=== PATIENT | male | born 1935 | race Caucasian/White ===

== ENCOUNTER 2018-08-17 10:02 | Emergency (ER) | payer OTHER | END 2018-08-17 13:05 | disposition home or self-care (01) | LOC: JER 10:02 ==

== ENCOUNTER 2021-05-27 04:26 | Day surgery (SDC) | payer OTHER ==
[2021-05-24 15:44] VITALS: BMI 24.5
[2021-05-27 09:17] VITALS: TEMP 97
[2021-05-27 10:31] VITALS: BP 129/66; PULSE 86
== END 2021-05-27 10:04 | disposition home or self-care (01) ==
LOC: JASU-ENDO 04:26
PROVIDERS: ATTEND Internal Medicine Gastroenterology
PROC: 0DB68ZX Excision of Stomach, Via Natural or Artificial Opening Endoscopic, Diagnostic (ICD-10-PCS; principal; 2021-05-27 08:45)
DX: K29.50 Unspecified chronic gastritis without bleeding (principal); B96.81 Helicobacter pylori [H. pylori] as the cause of diseases classified elsewhere
CPT/HCPCS: 88305-TC; 88342-TC

== ENCOUNTER 2021-06-05 11:26 | Inpatient (IN) | payer OTHER ==
[2021-06-05] MEDS ORDERED: ALBUTEROL SO4 2.5/IPRATROPIUM 0.5 INH SOL 3 ML VIAL.NEB. NEB ONE (11:41)
[2021-06-05] MEDS ORDERED: DEXAMETHASONE SOD PHOSPHATE 10 MG/1 ML VIAL ONE (11:42)
[2021-06-05] MEDS ORDERED: MAGNESIUM SULFATE IN WATER 2 GM/50 ML IVPB IVPB ONE (11:42)
[2021-06-05 12:14] VITALS: BMI 20.8
[2021-06-05 12:29] LABS: BASO % 0.4 % (0-2.0); HEMATOCRIT 42.2 % (35.4-49); HEMOGLOBIN 13.8 GM/dL (11.7-16.9); LYMPH % 7.2 % (8-40); MCH 30.2 pg (25.7-33.7); MCHC 32.6 g/dl (32.0-35.9); MEAN CELL VOLUME 92.6 fl (80-96); MEAN PLT VOLUME 9.7 fl (7.5-11.1); MONO % 2.4 % (3.8-10.2); PLATELET COUNT 195 10^3/uL (134-434); RBC 4.56 M/mm3 (4.00-5.60); RDW 14.2 % (11.9-15.9); WHITE BLOOD COUNT 8.9 K/mm3 (4.0-10.0)
[2021-06-05 12:35] LABS: VENOUS BASE EXCESS -0.5 mmol/L (-2-2); VENOUS O2 SATURATION 47.1 % (70-80); VENOUS PH 7.23 (7.310-7.410)
[2021-06-05 12:43] LABS: INR 1.01 (0.83-1.09); PROTHROMBIN TIME (PATIENT) 11.6 SEC (9.7-13.0)
[2021-06-05 12:46] LABS: ACTIVATED PTT 32.5 SECONDS (25.2-36.5)
[2021-06-05] MEDS ORDERED: ALBUTEROL SO4 0.083% IH SOL 2.5 MG/3 ML VIAL.NEB. NEB ONE ×2 (12:51)
[2021-06-05 12:54] LABS: CALCIUM 8.7 mg/dL (8.5-10.1)
[2021-06-05 12:56] LABS: ALBUMIN 3.5 g/dl (3.4-5.0)
[2021-06-05 12:59] LABS: CREATININE 0.9 mg/dL (0.55-1.3)
[2021-06-05 13:00] LABS: BILIRUBIN,TOTAL 0.3 mg/dL (0.2-1); TOT PROT 6.6 g/dl (6.4-8.2)
[2021-06-05 13:03] LABS: LACTIC ACID 5.3 mmol/L (0.4-2.0)
[2021-06-05] MEDS ORDERED: SODIUM CHLORIDE 0.9% 500 ML INFUS.BAG IV ONE ×3 (13:22→18:35)
[2021-06-05] MEDS ORDERED: VANCOMYCIN 1 GM in D5W (PRE-DOCKED) 1,000 MG/250 ML IVPB ONE (16:26)
[2021-06-05] MEDS ORDERED: PIPERACILLIN/TAZOB 2.25 GM 2.25 GM in DEXTROSE 5%-WATER - 50 ML IVPB ONE (16:26)
[2021-06-05 16:28] LABS: N-TERMINAL BNP 153.4 pg/ml (5-450)
[2021-06-05] MEDS ORDERED: PIPERACILLIN/TAZOB 2.25 GM 2.25 GM/50 ML BAG IVPB ONE (16:38)
[2021-06-05] MEDS ORDERED: VANCOMYCIN 1 GRAM (PRE-DOCKED) 1,000 MG/250 ML BAG IVPB ONE (16:38)
[2021-06-05 18:25] LABS: EPI CELLS 3 /uL (0-25.1); HYALINE CASTS 2 /uL (0-3.1); URINE APPEARANCE CLEAR; URINE BACTERIA 5 /uL (0-1359); URINE BILIRUBIN NEGATIVE (NEGATIVE); URINE COLOR YELLOW; URINE GLUCOSE (UA) NEGATIVE (NEGATIVE); URINE KETONE NEGATIVE (NEGATIVE); URINE LEUK ESTERASE NEGATIVE (NEGATIVE); URINE NITRITE NEGATIVE (NEGATIVE); URINE PROTEIN TRACE (NEGATIVE); URINE RBC 11 /uL (0-23.9); URINE UROBILINOGEN 0.2 mg/dL (0.2-1.0); URINE WBC 3 /uL (0-25.8)
[2021-06-05] MEDS ORDERED: HEPARIN NA (PORCINE) 5,000 UNITS/ML 1ML VIAL ONE (19:31)
[2021-06-05] MEDS: HEPARIN NA (PORCINE) 5,000 UNITS/ML 1ML VIAL SQ SCH (19:36)
[2021-06-05 23:05] LABS: LACTIC ACID 4.2 mmol/L (0.4-2.0)
[2021-06-06] MEDS ORDERED: HEPARIN NA (PORCINE) 5,000 UNITS/ML 1ML VIAL ONE (05:04)
[2021-06-06] MEDS: HEPARIN NA (PORCINE) 5,000 UNITS/ML 1ML VIAL SQ SCH ×3 (05:08→18:44)
[2021-06-06 08:08] LABS: BASO % 0.2 % (0-2.0); HEMATOCRIT 38.6 % (35.4-49); HEMOGLOBIN 12.3 GM/dL (11.7-16.9); LYMPH % 9.1 % (8-40); MCH 29.8 pg (25.7-33.7); MCHC 31.9 g/dl (32.0-35.9); MEAN CELL VOLUME 93.5 fl (80-96); MONO % 5.9 % (3.8-10.2); NEUT % 84.8 % (42.8-82.8); PLATELET COUNT 190 10^3/uL (134-434); RBC 4.13 M/mm3 (4.00-5.60); RDW 14.5 % (11.9-15.9)
[2021-06-06 08:19] LABS: ALBUMIN 3.2 g/dl (3.4-5.0); CALCIUM 8.5 mg/dL (8.5-10.1)
[2021-06-06 08:20] LABS: BLOOD UREA NITROGEN 12.2 mg/dL (7-18)
[2021-06-06 08:22] LABS: CREATININE 0.6 mg/dL (0.55-1.3)
[2021-06-06 08:24] LABS: BILIRUBIN,TOTAL 0.3 mg/dL (0.2-1); TOT PROT 5.6 g/dl (6.4-8.2)
[2021-06-06] MEDS ORDERED: METOPROLOL TARTRATE 25 MG TABLET (FP) ONE (09:59)
[2021-06-06] MEDS ORDERED: NIFEdipine E.R. 30 MG TABLET ONE (09:59)
[2021-06-06] MEDS ORDERED: ASPIRIN 81 MG CHEWABLE TABLETS ONE (10:00)
[2021-06-06] MEDS: ASPIRIN 81 MG CHEWABLE TABLETS PO SCH (10:11)
[2021-06-06] MEDS: NIFEdipine E.R. 30 MG TABLET PO SCH (10:14)
[2021-06-06] MEDS: METOPROLOL TARTRATE 25 MG TABLET (FP) PO SCH (10:14)
[2021-06-06 13:38] LABS: ARTERIAL BLD GAS O2 SATURATION 97.9 % (95-98); ARTERIAL BLOOD GAS BASE EXCESS 2.8 mmol/L (-2-2); ARTERIAL BLOOD GAS PO2 116.1 mmHg (80-100); ARTERIAL BLOOD GAS pH 7.338 (7.350-7.450)
[2021-06-06 13:41] LABS: VENT MODE S/T; VENT RATE 14
[2021-06-06 13:42] LABS: ALLENS TEST POSITIVE
[2021-06-06] MEDS ORDERED: ACETAMINOPHEN INJECTION 100 ML IVPB ONE (15:42)
[2021-06-06] MEDS ORDERED: ACETAMINOPHEN 1000 MG/100 ML BAG IVPB ONE (23:22)
[2021-06-07] MEDS ORDERED: ALBUTEROL SO4 2.5/IPRATROPIUM 0.5 INH SOL 3 ML VIAL.NEB. NEB PRN (00:09)
[2021-06-07 00:42] LABS: ARTERIAL BLD GAS O2 SATURATION 92.2 % (95-98); ARTERIAL BLOOD GAS BASE EXCESS -1.2 mmol/L (-2-2); ARTERIAL BLOOD GAS PO2 75.6 mmHg (80-100); ARTERIAL BLOOD GAS pH 7.233 (7.350-7.450)
[2021-06-07 00:43] LABS: ALLENS TEST POSITIVE
[2021-06-07] MEDS ORDERED: FAMOTIDINE 20 MG/50 ML IVPB 20 MG/50 ML MG IVPB ONE (01:42)
[2021-06-07 02:41] LABS: ARTERIAL BLD GAS O2 SATURATION 95.8 % (95-98); ARTERIAL BLOOD GAS BASE EXCESS -2.7 mmol/L (-2-2); ARTERIAL BLOOD GAS PO2 94.2 mmHg (80-100); ARTERIAL BLOOD GAS pH 7.243 (7.350-7.450)
[2021-06-07 02:42] LABS: ALLENS TEST POSITIVE
[2021-06-07 02:43] LABS: VENT MODE S/T; VENT RATE 12
[2021-06-07] MEDS: HEPARIN NA (PORCINE) 5,000 UNITS/ML 1ML VIAL SQ SCH ×4 (05:37→21:50)
[2021-06-07 06:56] LABS: ARTERIAL BLD GAS O2 SATURATION 94.9 % (95-98); ARTERIAL BLOOD GAS BASE EXCESS -1.3 mmol/L (-2-2); ARTERIAL BLOOD GAS pH 7.262 (7.350-7.450)
[2021-06-07 06:58] LABS: ALLENS TEST POSITIVE
[2021-06-07 07:00] LABS: VENT MODE S/T; VENT RATE 12
[2021-06-07] MEDS: NIFEdipine E.R. 30 MG TABLET PO SCH (09:01)
[2021-06-07] MEDS: ASPIRIN 81 MG CHEWABLE TABLETS PO SCH (09:01)
[2021-06-07] MEDS: METOPROLOL TARTRATE 25 MG TABLET (FP) PO SCH (09:01)
[2021-06-07] MEDS: busPIRone HCL 5 MG TABLET PO SCH ×3 (10:28→21:50)
[2021-06-07] MEDS ORDERED: cefTRIAXone SODIUM 1 GM VIAL ONE (10:48)
[2021-06-07] MEDS ORDERED: DEXTROSE 5%-WATER - 50 ML IVPB ONE (10:49)
[2021-06-07] MEDS: CEFTRIAXONE 1 GM in DEXTROSE 5%-WATER - 50 ML IVPB SCH (10:54)
[2021-06-07] MEDS: methylPREDNISolone NA SUCC 40 MG/1 ML VIAL IVPUSH SCH ×3 (10:56→20:35)
[2021-06-07] MEDS ORDERED: ALBUTEROL SO4 0.083% IH SOL 2.5 MG/3 ML VIAL.NEB. NEB PRN (14:27)
[2021-06-07] MEDS: ALBUTEROL SO4 2.5/IPRATROPIUM 0.5 INH SOL 3 ML VIAL.NEB. NEB SCH ×2 (15:39→20:01)
[2021-06-08] MEDS ORDERED: LORazepam 2 MG/ML SDV VIAL IVPUSH ONE (02:01)
[2021-06-08] MEDS: methylPREDNISolone NA SUCC 40 MG/1 ML VIAL IVPUSH SCH ×4 (02:25→21:42)
[2021-06-08] MEDS: HEPARIN NA (PORCINE) 5,000 UNITS/ML 1ML VIAL SQ SCH ×3 (05:24→21:42)
[2021-06-08] MEDS: busPIRone HCL 5 MG TABLET PO SCH ×3 (05:24→21:43)
[2021-06-08] MEDS: ALBUTEROL SO4 2.5/IPRATROPIUM 0.5 INH SOL 3 ML VIAL.NEB. NEB SCH ×4 (07:30→20:17)
[2021-06-08] MEDS ORDERED: DEXTROSE 5%-WATER - 50 ML IVPB ONE (08:46)
[2021-06-08] MEDS ORDERED: cefTRIAXone SODIUM 1 GM VIAL ONE (08:46)
[2021-06-08] MEDS: ASPIRIN 81 MG CHEWABLE TABLETS PO SCH (10:22)
[2021-06-08] MEDS: NIFEdipine E.R. 30 MG TABLET PO SCH (10:22)
[2021-06-08] MEDS: METOPROLOL TARTRATE 25 MG TABLET (FP) PO SCH (10:22)
[2021-06-08] MEDS: CEFTRIAXONE 1 GM in DEXTROSE 5%-WATER - 50 ML IVPB SCH (10:22)
[2021-06-08 13:05] LABS: BLOOD UREA NITROGEN 21.8 mg/dL (7-18)
[2021-06-08 13:08] LABS: CALCIUM 8.6 mg/dL (8.5-10.1)
[2021-06-08 13:11] LABS: CREATININE 0.8 mg/dL (0.55-1.3)
[2021-06-08 13:12] LABS: BILIRUBIN,TOTAL 0.2 mg/dL (0.2-1); TOT PROT 5.9 g/dl (6.4-8.2)
[2021-06-09] MEDS: methylPREDNISolone NA SUCC 40 MG/1 ML VIAL IVPUSH SCH ×4 (02:14→20:41)
[2021-06-09] MEDS: HEPARIN NA (PORCINE) 5,000 UNITS/ML 1ML VIAL SQ SCH ×3 (05:40→22:23)
[2021-06-09] MEDS: busPIRone HCL 5 MG TABLET PO SCH ×3 (05:40→22:23)
[2021-06-09] MEDS: ALBUTEROL SO4 2.5/IPRATROPIUM 0.5 INH SOL 3 ML VIAL.NEB. NEB SCH ×4 (08:04→19:54)
[2021-06-09] MEDS ORDERED: cefTRIAXone SODIUM 1 GM VIAL ONE (10:04)
[2021-06-09] MEDS ORDERED: DEXTROSE 5%-WATER - 50 ML IVPB ONE (10:04)
[2021-06-09] MEDS: CEFTRIAXONE 1 GM in DEXTROSE 5%-WATER - 50 ML IVPB SCH (11:49)
[2021-06-09] MEDS: NIFEdipine E.R. 30 MG TABLET PO SCH (11:58)
[2021-06-09] MEDS: METOPROLOL TARTRATE 25 MG TABLET (FP) PO SCH (11:58)
[2021-06-09] MEDS: ASPIRIN 81 MG CHEWABLE TABLETS PO SCH (11:58)
[2021-06-10] MEDS: methylPREDNISolone NA SUCC 40 MG/1 ML VIAL IVPUSH SCH ×3 (03:00→17:04)
[2021-06-10] MEDS: busPIRone HCL 5 MG TABLET PO SCH ×3 (06:15→22:00)
[2021-06-10] MEDS: HEPARIN NA (PORCINE) 5,000 UNITS/ML 1ML VIAL SQ SCH ×3 (06:29→22:00)
[2021-06-10] MEDS ORDERED: DEXTROSE 5%-WATER - 50 ML IVPB ONE (07:44)
[2021-06-10] MEDS ORDERED: cefTRIAXone SODIUM 1 GM VIAL ONE (07:44)
[2021-06-10] MEDS: ALBUTEROL SO4 2.5/IPRATROPIUM 0.5 INH SOL 3 ML VIAL.NEB. NEB SCH ×4 (08:20→20:11)
[2021-06-10] MEDS: ASPIRIN 81 MG CHEWABLE TABLETS PO SCH (09:34)
[2021-06-10] MEDS: CEFTRIAXONE 1 GM in DEXTROSE 5%-WATER - 50 ML IVPB SCH (09:34)
[2021-06-10] MEDS: METOPROLOL TARTRATE 25 MG TABLET (FP) PO SCH (09:35)
[2021-06-10] MEDS: NIFEdipine E.R. 30 MG TABLET PO SCH (09:35)
[2021-06-10] MEDS ORDERED: LORazepam 2 MG/ML SDV VIAL IVPUSH ONE (22:30)
[2021-06-11] MEDS ORDERED: hydrALAZINE HCL 20 MG/ML VIAL IVPUSH ONE (01:03)
[2021-06-11] MEDS ORDERED: ACETAMINOPHEN 1000 MG/100 ML BAG IVPB ONE (01:03)
[2021-06-11 01:21] LABS: BASO % 0.3 % (0-2.0); HEMATOCRIT 41.6 % (35.4-49); HEMOGLOBIN 13.5 GM/dL (11.7-16.9); LYMPH % 4.7 % (8-40); MCHC 32.4 g/dl (32.0-35.9); MEAN CELL VOLUME 92.5 fl (80-96); MEAN PLT VOLUME 10.1 fl (7.5-11.1); MONO % 5.4 % (3.8-10.2); NEUT % 89.6 % (42.8-82.8); PLATELET COUNT 165 10^3/uL (134-434); RDW 14.3 % (11.9-15.9); WHITE BLOOD COUNT 8.3 K/mm3 (4.0-10.0)
[2021-06-11 01:29] LABS: BLOOD UREA NITROGEN 36.2 mg/dL (7-18); CALCIUM 8.7 mg/dL (8.5-10.1); MAGNESIUM 2.7 mg/dL (1.8-2.4)
[2021-06-11 01:33] LABS: CREATININE 0.7 mg/dL (0.55-1.3)
[2021-06-11] MEDS: methylPREDNISolone NA SUCC 40 MG/1 ML VIAL IVPUSH SCH ×3 (02:46→21:52)
[2021-06-11] MEDS: busPIRone HCL 5 MG TABLET PO SCH ×3 (06:14→21:41)
[2021-06-11] MEDS: HEPARIN NA (PORCINE) 5,000 UNITS/ML 1ML VIAL SQ SCH ×3 (07:06→21:52)
[2021-06-11] MEDS: ALBUTEROL SO4 2.5/IPRATROPIUM 0.5 INH SOL 3 ML VIAL.NEB. NEB SCH ×4 (08:00→20:15)
[2021-06-11] MEDS: METOPROLOL TARTRATE 25 MG TABLET (FP) PO SCH (08:59)
[2021-06-11] MEDS: NIFEdipine E.R. 30 MG TABLET PO SCH (08:59)
[2021-06-11] MEDS: ASPIRIN 81 MG CHEWABLE TABLETS PO SCH (08:59)
[2021-06-11] MEDS ORDERED: METOPROLOL TARTRATE 5 MG/5 ML VIAL IVPUSH PRN (09:00)
[2021-06-11] MEDS ORDERED: DEXTROSE 5%-WATER - 50 ML IVPB ONE (09:02)
[2021-06-11] MEDS ORDERED: cefTRIAXone SODIUM 1 GM VIAL ONE (09:02)
[2021-06-11] MEDS: CEFTRIAXONE 1 GM in DEXTROSE 5%-WATER - 50 ML IVPB SCH (09:07)
[2021-06-11] MEDS ORDERED: LORazepam 2 MG/ML SDV VIAL IVPUSH ONE (11:00)
[2021-06-11] MEDS: AMINO ACIDS 4.25%/D5W 1,000 ML IV SCH (17:36)
[2021-06-12] MEDS: HEPARIN NA (PORCINE) 5,000 UNITS/ML 1ML VIAL SQ SCH ×3 (06:44→21:30)
[2021-06-12] MEDS ORDERED: FAMOTIDINE 20 MG/50 ML IVPB 20 MG/50 ML MG IVPB ONE (06:44)
[2021-06-12] MEDS: busPIRone HCL 5 MG TABLET PO SCH ×2 (06:44→14:27)
[2021-06-12] MEDS: ALBUTEROL SO4 2.5/IPRATROPIUM 0.5 INH SOL 3 ML VIAL.NEB. NEB SCH ×4 (08:26→20:15)
[2021-06-12] MEDS: ASPIRIN 81 MG CHEWABLE TABLETS PO SCH (10:21)
[2021-06-12] MEDS: METOPROLOL TARTRATE 25 MG TABLET (FP) PO SCH (10:21)
[2021-06-12] MEDS: methylPREDNISolone NA SUCC 40 MG/1 ML VIAL IVPUSH SCH ×2 (10:22→21:30)
[2021-06-12] MEDS: NIFEdipine E.R. 30 MG TABLET PO SCH (10:22)
[2021-06-12] MEDS ORDERED: hydrALAZINE HCL 20 MG/ML VIAL IVPUSH PRN (14:15)
[2021-06-12] MEDS: AMINO ACIDS 4.25%/D5W 1,000 ML IV SCH (17:40)
[2021-06-12] MEDS ORDERED: METOPROLOL TARTRATE 5 MG/5 ML VIAL IVPUSH PRN (17:47)
[2021-06-12] MEDS: BUDESONIDE/FORMETEROL FUMARATE 160/4.5 mcg INHALER IH SCH (22:23)
[2021-06-13] MEDS: ALBUTEROL SO4 2.5/IPRATROPIUM 0.5 INH SOL 3 ML VIAL.NEB. NEB PRN (01:14)
[2021-06-13] MEDS: HEPARIN NA (PORCINE) 5,000 UNITS/ML 1ML VIAL SQ SCH (05:09)
[2021-06-13] MEDS: ALBUTEROL SO4 2.5/IPRATROPIUM 0.5 INH SOL 3 ML VIAL.NEB. NEB SCH ×4 (07:44→20:26)
[2021-06-13 08:52] LABS: BASO % 0.2 % (0-2.0); HEMATOCRIT 44.9 % (35.4-49); MCH 29.4 pg (25.7-33.7); MCHC 31.2 g/dl (32.0-35.9); MEAN CELL VOLUME 94.1 fl (80-96); MEAN PLT VOLUME 10.1 fl (7.5-11.1); MONO % 6.6 % (3.8-10.2); NEUT % 85.2 % (42.8-82.8); PLATELET COUNT 132 10^3/uL (134-434); RBC 4.77 M/mm3 (4.00-5.60); RDW 13.7 % (11.9-15.9); WHITE BLOOD COUNT 5.9 K/mm3 (4.0-10.0)
[2021-06-13 09:08] LABS: CALCIUM 8.7 mg/dL (8.5-10.1)
[2021-06-13 09:09] LABS: ALBUMIN 3.4 g/dl (3.4-5.0); BLOOD UREA NITROGEN 30.6 mg/dL (7-18); INR 0.98 (0.83-1.09); MAGNESIUM 2.6 mg/dL (1.8-2.4); PROTHROMBIN TIME (PATIENT) 11.3 SEC (9.7-13.0)
[2021-06-13 09:12] LABS: CREATININE 0.6 mg/dL (0.55-1.3); PHOSPHOROUS 2.2 mg/dL (2.5-4.9)
[2021-06-13 09:13] LABS: BILIRUBIN,TOTAL 0.6 mg/dL (0.2-1)
[2021-06-13] MEDS: methylPREDNISolone NA SUCC 40 MG/1 ML VIAL IVPUSH SCH ×2 (09:18→21:41)
[2021-06-13] MEDS: BUDESONIDE/FORMETEROL FUMARATE 160/4.5 mcg INHALER IH SCH ×2 (09:25→21:47)
[2021-06-13 17:02] LABS: ARTERIAL BLOOD GAS PO2 97.2 mmHg (80-100); ARTERIAL BLOOD GAS pH 7.371 (7.350-7.450)
[2021-06-13 17:03] LABS: ALLENS TEST POSITIVE
[2021-06-13] MEDS: AMINO ACIDS 4.25%/D5W 1,000 ML IV SCH (17:18)
[2021-06-13] MEDS ORDERED: ACETAMINOPHEN 1000 MG/100 ML BAG IVPB ONE (20:19)
[2021-06-13 21:06] LABS: SARS-CoV-2 NAA Not Detected (Not Detected)
[2021-06-14] MEDS: ALBUTEROL SO4 2.5/IPRATROPIUM 0.5 INH SOL 3 ML VIAL.NEB. NEB PRN (03:33)
[2021-06-14 07:43] LABS: HEMATOCRIT 45.3 % (35.4-49); HEMOGLOBIN 14.6 GM/dL (11.7-16.9); MCH 29.7 pg (25.7-33.7); MCHC 32.2 g/dl (32.0-35.9); MEAN CELL VOLUME 92.1 fl (80-96); MEAN PLT VOLUME 10.4 fl (7.5-11.1); PLATELET COUNT 128 10^3/uL (134-434); RBC 4.92 M/mm3 (4.00-5.60); RDW 14.2 % (11.9-15.9); WHITE BLOOD COUNT 7.8 K/mm3 (4.0-10.0)
[2021-06-14] MEDS ORDERED: ACETAMINOPHEN 1000 MG/100 ML BAG IVPB PRN (07:52)
[2021-06-14 08:15] LABS: ALBUMIN 3.5 g/dl (3.4-5.0)
[2021-06-14 08:16] LABS: CALCIUM 8.7 mg/dL (8.5-10.1); CREATININE 0.6 mg/dL (0.55-1.3); MAGNESIUM 2.4 mg/dL (1.8-2.4)
[2021-06-14 08:17] LABS: BLOOD UREA NITROGEN 37.7 mg/dL (7-18)
[2021-06-14 08:18] LABS: TOT PROT 5.9 g/dl (6.4-8.2)
[2021-06-14 08:23] LABS: BILIRUBIN,TOTAL 0.7 mg/dL (0.2-1)
[2021-06-14 08:26] LABS: INR 1.03 (0.83-1.09); PROTHROMBIN TIME (PATIENT) 11.9 SEC (9.7-13.0)
[2021-06-14] MEDS: ALBUTEROL SO4 2.5/IPRATROPIUM 0.5 INH SOL 3 ML VIAL.NEB. NEB SCH ×4 (08:35→20:30)
[2021-06-14 09:23] LABS: ANISOCYTOSIS 0; HELMET CELLS 0; HOWELL-JOLLY BODIES 0; MACROCYTOSIS 0; OVALOCYTE 0; ROULEAU 0; SICKELED CELLS 0; TARGET CELLS 0; TEAR DROP CELLS 0; TOXIC GRANULATION 0
[2021-06-14] MEDS: methylPREDNISolone NA SUCC 40 MG/1 ML VIAL IVPUSH SCH (09:47)
[2021-06-14] MEDS: BUDESONIDE/FORMETEROL FUMARATE 160/4.5 mcg INHALER IH SCH ×2 (09:48→21:23)
[2021-06-14] MEDS: HEPARIN NA (PORCINE) 5,000 UNITS/ML 1ML VIAL SQ SCH ×2 (13:08→21:23)
[2021-06-14] MEDS: AMINO ACIDS 4.25%/D5W 1,000 ML IV SCH (16:50)
[2021-06-15 07:31] LABS: INR 1.07 (0.83-1.09); PROTHROMBIN TIME (PATIENT) 12.3 SEC (9.7-13.0)
[2021-06-15 07:37] LABS: ALBUMIN 3.7 g/dl (3.4-5.0); BLOOD UREA NITROGEN 45.1 mg/dL (7-18); MAGNESIUM 2.4 mg/dL (1.8-2.4)
[2021-06-15 07:40] LABS: CREATININE 0.7 mg/dL (0.55-1.3)
[2021-06-15 07:42] LABS: BILIRUBIN,TOTAL 0.7 mg/dL (0.2-1); TOT PROT 6.2 g/dl (6.4-8.2)
[2021-06-15 07:46] LABS: BASO % 0.2 % (0-2.0); EOS % 0.3 % (0-4.5); HEMATOCRIT 47.7 % (35.4-49); HEMOGLOBIN 15.1 GM/dL (11.7-16.9); LYMPH % 8.1 % (8-40); MCH 29.4 pg (25.7-33.7); MCHC 31.7 g/dl (32.0-35.9); MEAN CELL VOLUME 92.6 fl (80-96); MEAN PLT VOLUME 10.6 fl (7.5-11.1); MONO % 5.3 % (3.8-10.2); NEUT % 86.1 % (42.8-82.8); PLATELET COUNT 143 10^3/uL (134-434); RBC 5.15 M/mm3 (4.00-5.60); RDW 14.6 % (11.9-15.9); WHITE BLOOD COUNT 15.2 K/mm3 (4.0-10.0)
[2021-06-15] MEDS: ALBUTEROL SO4 2.5/IPRATROPIUM 0.5 INH SOL 3 ML VIAL.NEB. NEB SCH ×4 (08:40→20:33)
[2021-06-15] MEDS ORDERED: GLUCAGON 1 MG KIT IVPUSH ONE (10:32)
[2021-06-15] MEDS: methylPREDNISolone NA SUCC 40 MG/1 ML VIAL IVPUSH SCH (12:12)
[2021-06-15] MEDS: BUDESONIDE/FORMETEROL FUMARATE 160/4.5 mcg INHALER IH SCH ×2 (12:12→21:58)
[2021-06-15] MEDS: HEPARIN NA (PORCINE) 5,000 UNITS/ML 1ML VIAL SQ SCH ×2 (14:11→21:58)
[2021-06-15] MEDS: ACETAMINOPHEN 1000 MG/100 ML BAG IVPB PRN (14:51)
[2021-06-15] MEDS: AMINO ACIDS 4.25%/D5W 1,000 ML IV SCH (21:58)
[2021-06-16] MEDS: ACETAMINOPHEN 1000 MG/100 ML BAG IVPB PRN ×2 (05:28→14:16)
[2021-06-16] MEDS: HEPARIN NA (PORCINE) 5,000 UNITS/ML 1ML VIAL SQ SCH ×3 (05:28→21:25)
[2021-06-16] MEDS: ALBUTEROL SO4 2.5/IPRATROPIUM 0.5 INH SOL 3 ML VIAL.NEB. NEB SCH ×4 (08:10→20:04)
[2021-06-16] MEDS: methylPREDNISolone NA SUCC 40 MG/1 ML VIAL IVPUSH SCH (11:39)
[2021-06-16] MEDS: BUDESONIDE/FORMETEROL FUMARATE 160/4.5 mcg INHALER IH SCH ×2 (11:39→21:26)
[2021-06-16 11:56] LABS: BASO % 0.2 % (0-2.0); EOS % 0.1 % (0-4.5); HEMOGLOBIN 15.1 GM/dL (11.7-16.9); LYMPH % 9.1 % (8-40); MCH 28.9 pg (25.7-33.7); MCHC 30.8 g/dl (32.0-35.9); MEAN CELL VOLUME 93.6 fl (80-96); MEAN PLT VOLUME 10.9 fl (7.5-11.1); MONO % 7.7 % (3.8-10.2); NEUT % 82.9 % (42.8-82.8); PLATELET COUNT 128 10^3/uL (134-434); RBC 5.24 M/mm3 (4.00-5.60); RDW 14.3 % (11.9-15.9); WHITE BLOOD COUNT 11.3 K/mm3 (4.0-10.0)
[2021-06-16 12:29] LABS: ALBUMIN 3.4 g/dl (3.4-5.0); BLOOD UREA NITROGEN 43.1 mg/dL (7-18); CALCIUM 9.3 mg/dL (8.5-10.1); MAGNESIUM 2.4 mg/dL (1.8-2.4)
[2021-06-16 12:32] LABS: CREATININE 0.7 mg/dL (0.55-1.3)
[2021-06-16 12:34] LABS: BILIRUBIN,TOTAL 0.6 mg/dL (0.2-1)
[2021-06-16] MEDS: AMINO ACIDS 4.25%/D5W 1,000 ML IV SCH (19:03)
[2021-06-17] MEDS: ALBUTEROL SO4 2.5/IPRATROPIUM 0.5 INH SOL 3 ML VIAL.NEB. NEB PRN (04:54)
[2021-06-17] MEDS: HEPARIN NA (PORCINE) 5,000 UNITS/ML 1ML VIAL SQ SCH ×3 (06:48→20:59)
[2021-06-17 07:09] LABS: BASO % 0.1 % (0-2.0); EOS % 0.1 % (0-4.5); HEMATOCRIT 47.9 % (35.4-49); HEMOGLOBIN 14.8 GM/dL (11.7-16.9); LYMPH % 10.3 % (8-40); MCH 28.9 pg (25.7-33.7); MCHC 30.9 g/dl (32.0-35.9); MEAN CELL VOLUME 93.5 fl (80-96); MEAN PLT VOLUME 11.5 fl (7.5-11.1); MONO % 7.4 % (3.8-10.2); NEUT % 82.1 % (42.8-82.8); PLATELET COUNT 122 10^3/uL (134-434); RBC 5.12 M/mm3 (4.00-5.60); RDW 14.3 % (11.9-15.9); WHITE BLOOD COUNT 11.5 K/mm3 (4.0-10.0)
[2021-06-17 07:26] LABS: CALCIUM 8.9 mg/dL (8.5-10.1)
[2021-06-17 07:27] LABS: ALBUMIN 3.4 g/dl (3.4-5.0); BLOOD UREA NITROGEN 43.1 mg/dL (7-18); MAGNESIUM 2.4 mg/dL (1.8-2.4)
[2021-06-17 07:30] LABS: CREATININE 0.6 mg/dL (0.55-1.3)
[2021-06-17 07:31] LABS: TOT PROT 5.9 g/dl (6.4-8.2)
[2021-06-17] MEDS: ALBUTEROL SO4 2.5/IPRATROPIUM 0.5 INH SOL 3 ML VIAL.NEB. NEB SCH ×4 (07:45→20:14)
[2021-06-17] MEDS: methylPREDNISolone NA SUCC 40 MG/1 ML VIAL IVPUSH SCH (10:04)
[2021-06-17] MEDS: BUDESONIDE/FORMETEROL FUMARATE 160/4.5 mcg INHALER IH SCH ×2 (10:04→20:59)
[2021-06-17] MEDS: AMINO ACIDS 4.25%/D5W 1,000 ML IV SCH (16:30)
[2021-06-18] MEDS: AMINO ACIDS 4.25%/D5W 1,000 ML IV SCH (00:36)
[2021-06-18] MEDS: HEPARIN NA (PORCINE) 5,000 UNITS/ML 1ML VIAL SQ SCH ×3 (05:08→22:21)
[2021-06-18 07:08] LABS: BASO % 0.2 % (0-2.0); HEMATOCRIT 45.4 % (35.4-49); HEMOGLOBIN 14.3 GM/dL (11.7-16.9); LYMPH % 7.7 % (8-40); MCH 29.5 pg (25.7-33.7); MCHC 31.4 g/dl (32.0-35.9); MEAN CELL VOLUME 93.7 fl (80-96); MEAN PLT VOLUME 10.9 fl (7.5-11.1); MONO % 9.1 % (3.8-10.2); PLATELET COUNT 120 10^3/uL (134-434); RBC 4.85 M/mm3 (4.00-5.60); RDW 14.1 % (11.9-15.9); WHITE BLOOD COUNT 10.9 K/mm3 (4.0-10.0)
[2021-06-18 07:34] LABS: CALCIUM 8.9 mg/dL (8.5-10.1)
[2021-06-18 07:35] LABS: BLOOD UREA NITROGEN 48.2 mg/dL (7-18); MAGNESIUM 2.4 mg/dL (1.8-2.4)
[2021-06-18 07:38] LABS: CREATININE 0.7 mg/dL (0.55-1.3)
[2021-06-18 07:40] LABS: BILIRUBIN,TOTAL 0.5 mg/dL (0.2-1); TOT PROT 5.7 g/dl (6.4-8.2)
[2021-06-18] MEDS: ALBUTEROL SO4 2.5/IPRATROPIUM 0.5 INH SOL 3 ML VIAL.NEB. NEB SCH ×4 (08:40→20:44)
[2021-06-18] MEDS: methylPREDNISolone NA SUCC 40 MG/1 ML VIAL IVPUSH SCH (09:54)
[2021-06-18] MEDS: BUDESONIDE/FORMETEROL FUMARATE 160/4.5 mcg INHALER IH SCH ×2 (09:57→22:21)
[2021-06-19] MEDS: HEPARIN NA (PORCINE) 5,000 UNITS/ML 1ML VIAL SQ SCH ×3 (05:58→22:01)
[2021-06-19] MEDS: ALBUTEROL SO4 2.5/IPRATROPIUM 0.5 INH SOL 3 ML VIAL.NEB. NEB PRN ×4 (06:42→07:39)
[2021-06-19] MEDS: methylPREDNISolone NA SUCC 40 MG/1 ML VIAL IVPUSH SCH ×3 (06:50→18:02)
[2021-06-19] MEDS ORDERED: methylPREDNISolone NA SUCC 125 MG/2 ML VIAL ONE (06:55)
[2021-06-19] MEDS: ALBUTEROL SO4 2.5/IPRATROPIUM 0.5 INH SOL 3 ML VIAL.NEB. NEB SCH ×4 (07:40→20:01)
[2021-06-19] MEDS: BUDESONIDE/FORMETEROL FUMARATE 160/4.5 mcg INHALER IH SCH ×2 (09:18→23:54)
[2021-06-19 09:22] LABS: BASO % 0.1 % (0-2.0); BLOOD UREA NITROGEN 43.5 mg/dL (7-18); CALCIUM 8.5 mg/dL (8.5-10.1); HEMATOCRIT 44.1 % (35.4-49); HEMOGLOBIN 14.4 GM/dL (11.7-16.9); LYMPH % 6.4 % (8-40); MAGNESIUM 2.5 mg/dL (1.8-2.4); MCH 30.3 pg (25.7-33.7); MCHC 32.7 g/dl (32.0-35.9); MEAN CELL VOLUME 92.6 fl (80-96); MEAN PLT VOLUME 11.2 fl (7.5-11.1); MONO % 10.1 % (3.8-10.2); NEUT % 83.4 % (42.8-82.8); PLATELET COUNT 126 10^3/uL (134-434); RBC 4.76 M/mm3 (4.00-5.60); RDW 14.1 % (11.9-15.9)
[2021-06-19 09:23] LABS: CREATININE 0.7 mg/dL (0.55-1.3)
[2021-06-19 09:25] LABS: BILIRUBIN,TOTAL 0.5 mg/dL (0.2-1); TOT PROT 5.8 g/dl (6.4-8.2)
[2021-06-20] MEDS: methylPREDNISolone NA SUCC 40 MG/1 ML VIAL IVPUSH SCH ×4 (01:35→21:33)
[2021-06-20] MEDS: HEPARIN NA (PORCINE) 5,000 UNITS/ML 1ML VIAL SQ SCH ×3 (05:41→21:33)
[2021-06-20 06:52] LABS: HEMOGLOBIN 13.9 GM/dL (11.7-16.9); MCH 29.2 pg (25.7-33.7); MEAN CELL VOLUME 94.1 fl (80-96); MEAN PLT VOLUME 10.6 fl (7.5-11.1); PLATELET COUNT 153 10^3/uL (134-434); RBC 4.78 M/mm3 (4.00-5.60); RDW 14.3 % (11.9-15.9); WHITE BLOOD COUNT 11.6 K/mm3 (4.0-10.0)
[2021-06-20 07:05] LABS: CHLORIDE 101 mmol/L (98-107); SODIUM 146 mmol/L (136-145)
[2021-06-20 07:09] LABS: CALCIUM 9.3 mg/dL (8.5-10.1)
[2021-06-20 07:10] LABS: ALBUMIN 3.4 g/dl (3.4-5.0); BLOOD UREA NITROGEN 45.7 mg/dL (7-18); GLUCOSE,RANDOM 170 mg/dL (74-106); MAGNESIUM 2.8 mg/dL (1.8-2.4)
[2021-06-20 07:12] LABS: SGPT/ALT 74 U/L (13-61)
[2021-06-20 07:13] LABS: CREATININE 0.8 mg/dL (0.55-1.3); SGOT/AST 38 U/L (15-37)
[2021-06-20 07:14] LABS: BILIRUBIN,TOTAL 0.5 mg/dL (0.2-1); TOT PROT 6.3 g/dl (6.4-8.2)
[2021-06-20 07:16] LABS: ALK PHOS 97 U/L (45-117)
[2021-06-20 07:18] LABS: ANION GAP 1 MMOL/L (8-16); CO2 > 45 mmol/L (21-32)
[2021-06-20] MEDS: ALBUTEROL SO4 2.5/IPRATROPIUM 0.5 INH SOL 3 ML VIAL.NEB. NEB SCH ×4 (07:40→19:44)
[2021-06-20] MEDS ORDERED: SODIUM ZIRCONIUM CYCLOSILICATE (LOKELMA) 5 GM PACKET PO ONE (08:36)
[2021-06-20] MEDS ORDERED: SODIUM ZIRCONIUM CYCLOSILICATE (LOKELMA) 10 GM PACKET GT ONE (09:00)
[2021-06-20] MEDS: BUDESONIDE/FORMETEROL FUMARATE 160/4.5 mcg INHALER IH SCH ×2 (09:06→21:33)
[2021-06-20 10:19] LABS: ANISOCYTOSIS 0; HELMET CELLS 0; HOWELL-JOLLY BODIES 0; MACROCYTOSIS 0; OVALOCYTE 0; ROULEAU 0; SICKELED CELLS 0; TARGET CELLS 0; TEAR DROP CELLS 0; TOXIC GRANULATION 0
[2021-06-21] MEDS: HEPARIN NA (PORCINE) 5,000 UNITS/ML 1ML VIAL SQ SCH ×2 (06:18→14:34)
[2021-06-21] MEDS: ALBUTEROL SO4 2.5/IPRATROPIUM 0.5 INH SOL 3 ML VIAL.NEB. NEB SCH ×3 (07:52→15:40)
[2021-06-21 08:55] LABS: BASO % 0.1 % (0-2.0); HEMATOCRIT 44.4 % (35.4-49); HEMOGLOBIN 13.6 GM/dL (11.7-16.9); LYMPH % 4.7 % (8-40); MCHC 30.7 g/dl (32.0-35.9); MEAN CELL VOLUME 94.6 fl (80-96); MEAN PLT VOLUME 11.4 fl (7.5-11.1); MONO % 6.3 % (3.8-10.2); NEUT % 88.9 % (42.8-82.8); PLATELET COUNT 148 10^3/uL (134-434); RDW 14.6 % (11.9-15.9); WHITE BLOOD COUNT 13.4 K/mm3 (4.0-10.0)
[2021-06-21 09:13] LABS: CHLORIDE 99 mmol/L (98-107); SODIUM 148 mmol/L (136-145)
[2021-06-21 09:16] LABS: ALBUMIN 3.1 g/dl (3.4-5.0); BLOOD UREA NITROGEN 43.6 mg/dL (7-18); CALCIUM 8.6 mg/dL (8.5-10.1); GLUCOSE,RANDOM 186 mg/dL (74-106); MAGNESIUM 2.8 mg/dL (1.8-2.4)
[2021-06-21 09:19] LABS: CREATININE 0.8 mg/dL (0.55-1.3); SGOT/AST 35 U/L (15-37); SGPT/ALT 71 U/L (13-61)
[2021-06-21 09:21] LABS: BILIRUBIN,TOTAL 0.5 mg/dL (0.2-1); TOT PROT 5.9 g/dl (6.4-8.2)
[2021-06-21 09:22] LABS: ALK PHOS 88 U/L (45-117); ANION GAP 4 MMOL/L (8-16); CO2 > 45 mmol/L (21-32)
[2021-06-21] MEDS ORDERED: ACETAMINOPHEN 650 MG/20.3 ML ORAL SOLUTION (CUPS) PO PRN (10:12)
[2021-06-21] MEDS ORDERED: LOSARTAN POTASSIUM 50 MG TABLET PO SCH (10:30)
[2021-06-21] MEDS: methylPREDNISolone NA SUCC 40 MG/1 ML VIAL IVPUSH SCH (10:57)
[2021-06-21] MEDS: BUDESONIDE/FORMETEROL FUMARATE 160/4.5 mcg INHALER IH SCH (10:58)
[2021-06-21 14:14] VITALS: BP 108/54; PULSE 104; TEMP 97.4
[2021-06-21] MEDS ORDERED: METOPROLOL TARTRATE 25 MG TABLET (FP) PO SCH (22:00)
== END 2021-06-21 19:42 | disposition home or self-care (01) | DRG 56 ==
LOC: JER 11:26 → JERBED 21:48 → J4S 06-06 21:03
PROVIDERS: ADMIT Internal Medicine; ATTEND Nurse Practitioner Family
PROC: 0DH63UZ Insertion of Feeding Device into Stomach, Percutaneous Approach (ICD-10-PCS; principal; 2021-06-15)
PROC: BD12YZZ Fluoroscopy of Stomach using Other Contrast (ICD-10-PCS; 2021-06-15)
DX: G12.21 Amyotrophic lateral sclerosis (principal); J69.0 Pneumonitis due to inhalation of food and vomit; J96.01 Acute respiratory failure with hypoxia; J96.02 Acute respiratory failure with hypercapnia; E43 Unspecified severe protein-calorie malnutrition; E87.2 Acidosis; I47.1 Supraventricular tachycardia; R13.10 Dysphagia, unspecified; I25.10 Atherosclerotic heart disease of native coronary artery without angina pectoris; I10 Essential (primary) hypertension; E78.5 Hyperlipidemia, unspecified; Z98.61 Coronary angioplasty status; Z68.20 Body mass index [BMI] 20.0-20.9, adult
CPT/HCPCS: 36415; 36600; 49440; 71045-TC-FY; 71275-TC; 74018-TC-FY; 74177-TC; 74230-TC-FY; 80048; 80053; 80061; 81003; 82550; 82553; 82607; 82803; 83519; 83605; 83690; 83735; 83880; 84100; 84132; 84439; 84443; 84478; 84484; 85025; 85610; 85730; 86850; 86900; 86901; 87040; 87086; 92611-GN; 93005; 93010; 94010; 94150; 94640; 94660; 94761; 95860-TC; 97116-GP; 97161-GP; 99285-25; C9803-CS; J1644; U0003; U0005